=== PATIENT | male | born 1955 | race African-American/Black ===

== ENCOUNTER 2017-03-08 16:16 | Emergency (ER) | payer MEDICAID ==
[~2017-03-08] VITALS: Ht 188 cm; Wt 126.0 kg
[2017-03-08 17:43] LABS: BASOPHILS % 0.7 % (0.0-2.0); EOSINOPHILS % 2.6 % (0.0-5.0); HEMATOCRIT. 42.6 % (42.0-52.0); HEMOGLOBIN. 14.4 g/dL (14.0-18.0); LYMPHOCYTES % 25.5 % (20.0-50.0); MEAN CORPUSCULAR HEMOGLOBIN 30.5 pg (28.0-32.0); MEAN CORPUSCULAR VOLUME 90.4 fL (80.0-94.0); MEAN PLATELET VOLUME 8.6 fl (7.4-10.4); MONOCYTES % 10.3 % (2.0-8.0); NEUTROPHILS % 60.9 % (40.0-76.0); PLATELET 134 x1000/uL (130-400); RED BLOOD CELL COUNT 4.72 mill/uL (4.7-6.1); RED CELL DISTRIBUTION WIDTH 14.2 % (11.6-14.6)
[2017-03-08 17:51] LABS: CHLORIDE 106 mEq/L (98-107)
[2017-03-08 17:55] LABS: CARBON DIOXIDE 28 mEq/L (21-32)
[2017-03-08 17:56] LABS: INR 1.1
[2017-03-08 18:00] LABS: TROPONIN I < 0.02 ng/mL (0.00-0.04)
[2017-03-08 18:45] LABS: CLARITY URINE CLEAR (CLEAR); COLOR URINE YELLOW (YELLOW); GLUCOSE URINE NEGATIVE (NEGATIVE); KETONES URINE NEGATIVE (NEGATIVE); LEUKOCYTE ESTERASE URINE NEGATIVE (NEGATIVE); NITRITE URINE NEGATIVE (NEGATIVE); OCCULT BLOOD URINE NEGATIVE (NEGATIVE); PH URINE 5.5 (4.5-8.0); PROTEIN URINE NEGATIVE (NEGATIVE); SPECIFIC GRAVITY URINE 1.017 (1.005-1.030); UROBILINOGEN URINE 0.2 E.U./dL (0.2-1.0)
[2017-03-08 20:46] VITALS: BP_DIAS 87
[2017-03-08 21:32] VITALS: BP_SYST 128
== END 2017-03-08 21:36 | disposition home or self-care (01) ==
LOC: ER 16:47
DX: R00.2 Palpitations (principal); I10 Essential (primary) hypertension; R79.1 Abnormal coagulation profile
CPT/HCPCS: 36415; 71010; 80053; 81003; 83880; 84484; 85025; 85610; 93005; 99285